=== PATIENT | female | born 1985 ===

== ENCOUNTER 2016-10-09 20:10 | Emergency (ER) | payer OTHER ==
[2016-10-09 20:11] VITALS: BMI 43.5
[2016-10-09 20:35] VITALS: BP 155/95; PULSE 95; RESP 16; TEMP 99; O2SAT 99
--- NOTE | 2016-10-09 21:49 | ED PDOC ---
HPI: General Adult Time Seen by Provider: 10/09/16 20:45 Chief Complaint (Nursing): Weakness/Neurological Deficit Chief Complaint (Provider): Numbness and tingling of left arm History Per: Patient History/Exam Limitations: no limitations Onset/Duration Of Symptoms: Hrs (4x hours prior to arrival) Current Symptoms Are (Timing): Still Present Severity: Moderate Additional Complaint(s): 31 year old female with a pertinent medical history of anxiety presents to the ED with complaints of right hip area pain and numbness and tingling of her left arm. She reports that it started suddenly 4x hours prior to arrival when she was resting on her sofa after work. She reports that the hip area pain is non- radiating. She denies having groin pain, abdominal pain, headaches, dizziness, weakness, and any other complaints. She was previously seen today at an urgent care clinic and was sent to the ED because she has a family history of blood clots and strokes. PMD: Rivka Hawthorne MD Against Medical Advice - AMA Patient Left Against Medical Advice: The patient declines admission to the hospital and wishes to leave the Emergency Department. This action is against my medical advice. This decision was made with informed refusal. The patient was told that admission to the hospital is necessary. Explanation of the reasons why were discussed. The risks of leaving were explained to the patient and include, but are not limited to, worsening of known or currently unknown conditions, permanent disability and from undiagnosed or untreated conditions. The patient has the capacity to make this informed decision and understands my explanation of the current medical problem and risks of leaving. The patient voluntarily accepts these risks and signed an AMA form documenting our conversation. The patient was given the opportunity to ask questions and reconsider. The patient was encouraged to return to the Emergency Department at any time for further care. Past Medical History Reviewed: Historical Data, Nursing Documentation, Vital Signs Vital Signs: Last Vital Signs Temp 99.0 F 10/09/16 20:31 Pulse 95 H 10/09/16 20:31 Resp 16 10/09/16 20:31 BP 155/95 H 10/09/16 20:31 Pulse Ox 99 10/09/16 22:11 - Medical History PMH: Anxiety, Bipolar Disorder, Depression Denies: Diabetes, Hepatitis, HIV, HTN, Seizures, Sexually Transmitted Disease - Surgical History Surgical History: Cholecystectomy, - Family History Family History: States: Stroke, Other - Living Arrangements Living Arrangements: With Family - Social History Current smoker - smoking cessation education provided: No Alcohol: Social Drugs: Denies - Immunization History Hx Tetanus Toxoid Vaccination: Yes Hx Influenza Vaccination: No Hx Pneumococcal Vaccination: No - Home Medications Home Medications: Ambulatory Orders Medication Instructions Recorded Clonazepam [Klonopin] 1 mg PO BID 02/04/16 Lamotrigine [Lamictal] 200 mg PO DAILY 02/04/16 Venlafaxine [Effexor XR] 150 mg PO DAILY 02/04/16 - Allergies Allergies/Adverse Reactions: Allergies Allergy/AdvReac Type Severity Reaction Status Date / Time No Known Allergies Allergy Verified 02/04/16 11:23 Review of Systems ROS Statement: Except As Marked, All Systems Reviewed And Found Negative Gastrointestinal: Negative for: Abdominal Pain Musculoskeletal: Positive for: Other (right hip area pain) Neurological: Positive for: Numbness (numbness and tingling of right hand). Negative for: Weakness Physical Exam - Reviewed Nursing Documentation Reviewed: Yes Vital Signs Reviewed: Yes - Physical Exam Appears: Positive for: Well, Non-toxic (obese), No Acute Distress Head Exam: Positive for: ATRAUMATIC, NORMOCEPHALIC Skin: Positive for: Normal Color, Warm, Dry Eye Exam: Positive for: Normal appearance Cardiovascular/Chest: Positive for: Regular Rate, Rhythm Respiratory: Positive for: Normal Breath Sounds. Negative for: Respiratory Distress Gastrointestinal/Abdominal: Positive for: Normal Exam, Soft. Negative for: Tenderness Extremity: Positive for: Normal ROM. Negative for: Tenderness (no hip tenderness, no left arm tenderness, no right leg tenderness), Deformity, Swelling (no hip swelling, no leg swelling, no signs of DVT) Neurologic/Psych: Positive for: Alert, overlay operator II-XII (in tact), Oriented (3x), Cerebellar Tests (normal). Negative for: Motor/Sensory Deficits, Other ( weakness, numbness) - Laboratory Results Result Diagrams: 10/09/16 21:55 10/09/16 21:55 - ECG ECG: Positive for: Interpreted By Me, Viewed By Me ECG Rhythm: Positive for: Normal QRS, Sinus Rhythm (normal sinus rhythm rate is 79 beats per minute). Negative for: ST/T Changes O2 Sat by Pulse Oximetry: 99 (RA) Pulse Ox Interpretation: Normal Medical Decision Making Medical Decision Makin:45 Initial impression: 31 year old female with right hip area pain and left arm numbness and tingling. For isolated neurological pain consider cervical radiculopathy. Less likely but also considered: CVA limited to one extremity or atypical acute coronary syndrome. No criteria in history or physical exam for imaging including CT scan or doppler. Initial plan: * CT head w/o contrast * EKG * BMP * troponin I * urine * CBC * reevaluation Scribe Attestation: Documented by Charito Ya, acting as a scribe for Jitendra Meadows MD. Provider Scribe Attestation: All medical record entries made by the Scribe were at my direction and personally dictated by me. I have reviewed the chart and agree that the record accurately reflects my personal performance of the history, physical exam, medical decision making, and the department course for this patient. I have also personally directed, reviewed, and agree with the discharge instructions and disposition. Disposition - Clinical Impression Clinical Impression: Paresthesia - Disposition
[2016-10-09 22:02] LABS: BASO % 0.5 % (0.0-2.0); EOS # 0.1 K/uL (0.0-0.7); EOS % 0.8 % (0.0-4.0); HEMATOCRIT 37.9 % (34.0-47.0); LYMPH # 1.7 K/uL (1.0-4.3); LYMPH % 22.5 % (20.0-40.0); MEAN CORPUSCULAR HEMOGLOBIN 29.4 pg (27.0-31.0); MEAN PLATELET VOLUME 7.5 fl (7.2-11.7); MONO # 0.6 K/uL (0.0-0.8); MONO % 8.4 % (0.0-10.0); NEUT % 67.8 % (50.0-75.0); NRBC % 0.2 % (0.0-0.0); RED CELL DISTRIBUTION WIDTH 14.2 % (11.5-14.5); WHITE BLOOD COUNT 7.4 K/uL (4.8-10.8)
[2016-10-09 22:12] LABS: BLOOD UREA NITROGEN 16 mg/dl (7-17); CALCIUM 8.9 mg/dL (8.4-10.2); CARBON DIOXIDE 23 mmol/L (22-30); CHLORIDE 107 mmol/L (98-107); GFR AFRICAN-AMERICAN > 60; GLUCOSE,RANDOM 96 mg/dL (65-105); POTASSIUM 4.6 MMOL/L (3.6-5.0); SODIUM 139 mmol/l (132-148)
--- NOTE | 2016-10-10 10:14 | CT ---
PROCEDURE: CT HEAD WITHOUT CONTRAST. HISTORY: left arm numbness COMPARISON: None available. TECHNIQUE: Axial computed tomography images were obtained through the head/brain without intravenous contrast. Radiation dose: Total exam DLP = 846.57 mGy-cm. This CT exam was performed using one or more of the following dose reduction techniques: Automated exposure control, adjustment of the mA and/or kV according to patient size, and/or use of iterative reconstruction technique. FINDINGS: HEMORRHAGE: No intracranial hemorrhage. BRAIN: Blunt-white matter differentiation is preserved. There is no mass, mass effect or abnormal extra-axial fluid collection. VENTRICLES: The ventricles are normal in size, shape and configuration. CALVARIUM: There is no calvarial fracture or extracranial soft tissue swelling. PARANASAL SINUSES: Predominantly clear. MASTOID AIR CELLS: Predominantly clear. OTHER FINDINGS: None. IMPRESSION: No acute intracranial abnormality. A preliminary report was provided by [employer].
--- NOTE | 2016-10-10 18:10 | CARD ---
APPROVED REPORT EKG Measurement Heart [id number] <Conclusion> Normal sinus rhythm Normal ECG
== END 2016-10-10 00:26 | disposition left against medical advice (07) ==
LOC: H.ER 20:10
DX: R20.9 Unspecified disturbances of skin sensation (principal); Z86.59 Personal history of other mental and behavioral disorders